=== PATIENT | female | born 1940 | race Asian ===

== ENCOUNTER 2017-03-14 06:32 | Day surgery (SDC) | payer OTHER ==
[~2017-03-14] VITALS: Ht 154.9 cm; Wt 61.2 kg
[~2017-03-14 06:32] MED LIST: AMLODIPINE BESYL5 M1 PO; ASPIR LOW81 MG PO; ATENOLOL25 MG PO; DIOVAN320 MG PO; DORZOLAMIDE HYD10 M2 OU; MACRODANTIN100 MG PO; METFORMIN HCL1000 MG PO; PHOSLO667 MG PO; PLA75; SIMVASTATIN10 M1; TRAVATAN Z5 ML OU
[2017-03-14 07:00] VITALS: BP 145/65
[2017-03-14 10:09] VITALS: BP 118/61
== END 2017-03-14 10:20 | disposition home or self-care (01) ==
LOC: GI 06:32 → OR 08:30 → GI 10:20
PROVIDERS: Internal Medicine
PROC: 0DJD8ZZ Inspection of Lower Intestinal Tract, Via Natural or Artificial Opening Endoscopic (ICD-10-PCS; principal; 2017-03-14 08:30)
DX: Z12.11 Encounter for screening for malignant neoplasm of colon (principal); K64.4 Residual hemorrhoidal skin tags; E11.9 Type 2 diabetes mellitus without complications; E78.5 Hyperlipidemia, unspecified; I10 Essential (primary) hypertension; Z68.26 Body mass index [BMI] 26.0-26.9, adult; Z86.010 Personal history of colon polyps
CPT/HCPCS: 45378; J1200; J1610; J2250; J2310; J3010; J3490

== ENCOUNTER 2017-07-23 00:25 | Inpatient (IN) | payer OTHER ==
[~2017-07-23] VITALS: Ht 157.5 cm; Wt 65.1 kg
[2017-07-23 02:40] LABS: UA SPECIFIC GRAVITY >=1.030 (1.005-1.035); microscopic required? YES; urine erythrocyte TRACE (NEGATIVE)
[2017-07-23 03:09] LABS: BASOPHIL % 1.7 % (0-2); PLATELET COUNT 326 x10^3mcL (130-400); RED CELL DISTRIBUTION WIDTH 12.3 % (11.5-14.5)
[2017-07-23 03:17] LABS: CALCIUM 8.9 mg/dL (8.5-10.1); CARBON DIOXIDE 20.7 mmol/L (21-32); CHLORIDE SERUM 98 mmol/L (98-107); CREATININE SERUM 1.2 mg/dL (0.6-1.0); GLUCOSE SERUM 145 mg/dL (74-106); POTASSIUM SERUM 4.1 mmol/L (3.5-5.1); SODIUM SERUM 132 mmol/L (136-145)
[2017-07-23 03:39] LABS: ALBUMIN 3.5 g/dL (3.4-5.0); ALKALINE PHOSPHATASE 40 U/L (46-116); ALT/SGPT 13 U/L (14-59); AST/SGOT 30 U/L (15-37); BILIRUBIN TOTAL 0.54 mg/dL (0.20-1.00); TOTAL PROTEIN, SERUM 6.6 g/dL (6.4-8.2)
[2017-07-23 05:48] VITALS: BP 116/63
[2017-07-23] MEDS ORDERED: METFORMIN HCL1000 MG PO (06:03)
[2017-07-23] MEDS ORDERED: ASPIR 8181 MG PO (06:03)
[2017-07-23] MEDS ORDERED: AMLODIPINE BESYL5 M2 PO (06:04)
[2017-07-23] MEDS ORDERED: DIOVAN320 MG PO (06:04)
[2017-07-23] MEDS ORDERED: ARICEPT10 MG PO (06:04)
[2017-07-23] MEDS ORDERED: MYRBETRIQ25 MG PO (06:05)
[2017-07-23] MEDS ORDERED: NOR5 PO (06:05)
[2017-07-23] MEDS ORDERED: SIMVASTATIN10 M1 PO (06:05)
[2017-07-23 08:45] LABS: PHOSPHOROUS 3.5 mg/dL (2.5-4.9)
[2017-07-23 08:49] LABS: CHOLESTEROL/HDL RATIO 2.7
[2017-07-23 08:58] VITALS: BP 99/51
[2017-07-23 10:13] LABS: FREE T4 1.34 ng/dL (0.76-1.46); FREE THYROXINE INDEX 3.5 ug/dL (1.4-4.5); T4(THYROXINE) 9.1 ug/dL (4.7-13.3)
[2017-07-23 10:30] VITALS: BP 99/51
[2017-07-23 11:35] LABS: microscopic required? NO
[2017-07-23 11:56] LABS: urine erythrocyte NEGATIVE (NEGATIVE)
[2017-07-23 13:53] LABS: T3 TOTAL 0.89 ng/mL
[2017-07-23 14:30] VITALS: BP 90/49
[2017-07-23 16:00] VITALS: BP 102/58
[2017-07-23 20:00] VITALS: BP 118/64
[2017-07-24] VITALS (7 sets, daily range): BP systolic 93–111; BP diastolic 51–63
[2017-07-24 04:46] LABS: BASOPHIL % 0.7 % (0-2); PLATELET COUNT 268 x10^3mcL (130-400); RED CELL DISTRIBUTION WIDTH 13.4 % (11.5-14.5)
[2017-07-24 04:56] LABS: CALCIUM 7.8 mg/dL (8.5-10.1); CARBON DIOXIDE 25.8 mmol/L (21-32); CHLORIDE SERUM 100 mmol/L (98-107); CREATININE SERUM 0.9 mg/dL (0.6-1.0); GLUCOSE SERUM 142 mg/dL (74-106); MAGNESIUM 1.7 mg/dL (1.8-2.4); PHOSPHOROUS 3.6 mg/dL (2.5-4.9); POTASSIUM SERUM 3.1 mmol/L (3.5-5.1); SODIUM SERUM 136 mmol/L (136-145)
[2017-07-25 03:43] VITALS: BP 92/46
[2017-07-25 05:42] LABS: BASOPHIL % 0.6 % (0-2); PLATELET COUNT 286 x10^3mcL (130-400); RED CELL DISTRIBUTION WIDTH 13.7 % (11.5-14.5)
[2017-07-25 05:54] LABS: CALCIUM 7.9 mg/dL (8.5-10.1); CARBON DIOXIDE 26.8 mmol/L (21-32); CHLORIDE SERUM 99 mmol/L (98-107); GLUCOSE SERUM 148 mg/dL (74-106); PHOSPHOROUS 3.6 mg/dL (2.5-4.9); POTASSIUM SERUM 3.3 mmol/L (3.5-5.1); SODIUM SERUM 134 mmol/L (136-145)
[2017-07-25 06:03] LABS: ALBUMIN 3.2 g/dL (3.4-5.0)
[2017-07-25 08:00] VITALS: BP 97/50
[2017-07-25 12:00] VITALS: BP 106/49
[2017-07-25 16:00] VITALS: BP 88/41
[2017-07-25 19:22] VITALS: BP 109/55
[2017-07-26] VITALS (8 sets, daily range): BP systolic 105–114; BP diastolic 53–62; Ht 157.5 cm; Wt 65.1 kg
[2017-07-26 06:21] LABS: CALCIUM 8.5 mg/dL (8.5-10.1); CARBON DIOXIDE 27.6 mmol/L (21-32); CHLORIDE SERUM 101 mmol/L (98-107); CREATININE SERUM 1.2 mg/dL (0.6-1.0); GLUCOSE SERUM 155 mg/dL (74-106); MAGNESIUM 2.2 mg/dL (1.8-2.4); PHOSPHOROUS 3.9 mg/dL (2.5-4.9); POTASSIUM SERUM 3.9 mmol/L (3.5-5.1); SODIUM SERUM 138 mmol/L (136-145)
[2017-07-26 06:46] LABS: BASOPHIL % 0.4 % (0-2); PLATELET COUNT 298 x10^3mcL (130-400); RED CELL DISTRIBUTION WIDTH 13.6 % (11.5-14.5)
[2017-07-26 15:35] LABS: APPEARANCE FLUID HAZY; COLOR FLUID YELLOW; RBC FLUID 194 /cumm; SOURCE FLUID PLEURAL; WBC FLUID 149 /cumm
[2017-07-26 15:36] LABS: LYMPHOCYTE FLUID 90 %
[2017-07-27] VITALS (10 sets, daily range): BP systolic 101–119; BP diastolic 49–64
[2017-07-27 05:53] LABS: BASOPHIL % 0.5 % (0-2); PLATELET COUNT 313 x10^3mcL (130-400); RED CELL DISTRIBUTION WIDTH 13.2 % (11.5-14.5)
[2017-07-27 06:08] LABS: CARBON DIOXIDE 27.1 mmol/L (21-32); CHLORIDE SERUM 101 mmol/L (98-107); CREATININE SERUM 1.1 mg/dL (0.6-1.0); GLUCOSE SERUM 142 mg/dL (74-106); MAGNESIUM 2.2 mg/dL (1.8-2.4); PHOSPHOROUS 4.5 mg/dL (2.5-4.9); POTASSIUM SERUM 3.7 mmol/L (3.5-5.1); SODIUM SERUM 137 mmol/L (136-145)
[2017-07-28 03:35] VITALS: BP 111/55
[2017-07-28 06:04] LABS: BASOPHIL % 0.5 % (0-2); PLATELET COUNT 317 x10^3mcL (130-400); RED CELL DISTRIBUTION WIDTH 13.1 % (11.5-14.5)
[2017-07-28 06:05] LABS: CARBON DIOXIDE 27.8 mmol/L (21-32); CHLORIDE SERUM 99 mmol/L (98-107); GLUCOSE SERUM 137 mg/dL (74-106); MAGNESIUM 2.2 mg/dL (1.8-2.4); PHOSPHOROUS 4.4 mg/dL (2.5-4.9); POTASSIUM SERUM 3.5 mmol/L (3.5-5.1); SODIUM SERUM 138 mmol/L (136-145)
[2017-07-28 08:02] VITALS: BP 109/54
[2017-07-28 11:42] VITALS: BP 97/60
[2017-07-28 18:12] VITALS: BP 120/64
[2017-07-28 20:17] VITALS: BP 105/50
[2017-07-29 05:07] VITALS: BP 122/56
[2017-07-29 07:10] LABS: BASOPHIL % 0.3 % (0-2); PLATELET COUNT 322 x10^3mcL (130-400); RED CELL DISTRIBUTION WIDTH 12.8 % (11.5-14.5)
[2017-07-29 07:50] LABS: CALCIUM 9.2 mg/dL (8.5-10.1); CARBON DIOXIDE 27.7 mmol/L (21-32); CHLORIDE SERUM 99 mmol/L (98-107); CREATININE SERUM 1.1 mg/dL (0.6-1.0); GLUCOSE SERUM 139 mg/dL (74-106); MAGNESIUM 2.1 mg/dL (1.8-2.4); PHOSPHOROUS 4.2 mg/dL (2.5-4.9); SODIUM SERUM 139 mmol/L (136-145)
[2017-07-29 10:23] VITALS: BP 107/50
[2017-07-29 14:20] VITALS: BP 105/46
[2017-07-29 17:53] VITALS: BP 102/48
[2017-07-29 20:51] VITALS: BP 112/51
[2017-07-30 05:14] VITALS: BP 109/48
[2017-07-30 09:07] VITALS: BP 110/45
[2017-07-30 13:44] VITALS: BP 102/48
[2017-07-30 13:59] VITALS: BP 102/44
[2017-07-30] MEDS ORDERED: DIO80 PO (16:23)
[2017-07-30] MEDS ORDERED: METFORMIN HCL1000 MG PO (16:25)
[2017-07-30] MEDS ORDERED: COR3 PO (16:26)
[2017-07-30] MEDS ORDERED: MECLIZINE HCL12.5 MG PO (16:26)
[2017-07-30] MEDS ORDERED: CLOPIDOGREL75 M1 PO (17:15)
[2017-07-30 17:36] VITALS: BP 116/51
[2017-07-30] MEDS ORDERED: CLINDAMYCIN HC300 MG PO (17:40)
[2017-07-30] MEDS ORDERED: LEVOFLOXACIN500 M1 PO (17:40)
[2017-07-30] MEDS ORDERED: LAC PO (17:44)
[2017-07-30 21:56] VITALS: BP 105/42
[2017-07-31] VITALS (7 sets, daily range): BP systolic 95–119; BP diastolic 43–60
[2017-07-31 10:23] LABS: BASOPHIL % 0.5 % (0-2); CARBON DIOXIDE 26.2 mmol/L (21-32); CHLORIDE SERUM 100 mmol/L (98-107); GLUCOSE SERUM 143 mg/dL (74-106); PLATELET COUNT 289 x10^3mcL (130-400); POTASSIUM SERUM 3.5 mmol/L (3.5-5.1); RED CELL DISTRIBUTION WIDTH 12.9 % (11.5-14.5); SODIUM SERUM 138 mmol/L (136-145)
[2017-08-01 06:02] VITALS: BP 98/56
[2017-08-01 06:34] LABS: BASOPHIL % 0.5 % (0-2); PLATELET COUNT 269 x10^3mcL (130-400); RED CELL DISTRIBUTION WIDTH 13.4 % (11.5-14.5)
[2017-08-01 06:46] LABS: CALCIUM 8.9 mg/dL (8.5-10.1); CARBON DIOXIDE 26.3 mmol/L (21-32); CHLORIDE SERUM 102 mmol/L (98-107); CREATININE SERUM 0.9 mg/dL (0.6-1.0); GLUCOSE SERUM 161 mg/dL (74-106); MAGNESIUM 2.1 mg/dL (1.8-2.4); PHOSPHOROUS 3.6 mg/dL (2.5-4.9); POTASSIUM SERUM 3.7 mmol/L (3.5-5.1); SODIUM SERUM 138 mmol/L (136-145)
[2017-08-01 09:39] VITALS: BP 114/56
[2017-08-01 12:50] VITALS: BP 97/54
[2017-08-01 14:24] VITALS: BP 97/54
== END 2017-08-01 18:55 | DRG 222 ==
LOC: ED 00:25 → IC 04:25 → EDBEDREQ 04:25 → DU 04:25 → EDBEDREQTM 04:30 → IC 08:42 → DU 08:44 → IC 14:56 → DU 07-28 16:05 → IC 07-31 13:49 → DU 07-31 14:37
PROVIDERS: Emergency Medicine; Family Medicine; Internal Medicine Clinical Cardiac Electrophysiology; Internal Medicine Interventional Cardiology; Student in an Organized Health Care Education/Training Program
PROC: 05HM33Z Insertion of Infusion Device into Right Internal Jugular Vein, Percutaneous Approach (ICD-10-PCS; 2017-07-23)
PROC: B2111ZZ Fluoroscopy of Multiple Coronary Arteries using Low Osmolar Contrast (ICD-10-PCS; 2017-07-24)
PROC: B2151ZZ Fluoroscopy of Left Heart using Low Osmolar Contrast (ICD-10-PCS; 2017-07-24)
PROC: 4A023N7 Measurement of Cardiac Sampling and Pressure, Left Heart, Percutaneous Approach (ICD-10-PCS; principal; 2017-07-24 13:30)
PROC: 0W9B3ZZ Drainage of Left Pleural Cavity, Percutaneous Approach (ICD-10-PCS; 2017-07-26)
PROC: 0JH609Z Insertion of Cardiac Resynchronization Defibrillator Pulse Generator into Chest Subcutaneous Tissue and Fascia, Open Approach (ICD-10-PCS; 2017-07-31)
PROC: 02H63KZ Insertion of Defibrillator Lead into Right Atrium, Percutaneous Approach (ICD-10-PCS; 2017-07-31)
PROC: 02HK3KZ Insertion of Defibrillator Lead into Right Ventricle, Percutaneous Approach (ICD-10-PCS; 2017-07-31)
DX: I21.09 ST elevation (STEMI) myocardial infarction involving other coronary artery of anterior wall (principal); J69.0 Pneumonitis due to inhalation of food and vomit; J96.01 Acute respiratory failure with hypoxia; N17.0 Acute kidney failure with tubular necrosis; I50.43 Acute on chronic combined systolic (congestive) and diastolic (congestive) heart failure; E87.1 Hypo-osmolality and hyponatremia; E87.2 Acidosis; I69.354 Hemiplegia and hemiparesis following cerebral infarction affecting left non-dominant side; E44.0 Moderate protein-calorie malnutrition; I82.431 Acute embolism and thrombosis of right popliteal vein; J90 Pleural effusion, not elsewhere classified; I25.5 Ischemic cardiomyopathy; I11.0 Hypertensive heart disease with heart failure; I44.1 Atrioventricular block, second degree; E11.51 Type 2 diabetes mellitus with diabetic peripheral angiopathy without gangrene; D17.71 Benign lipomatous neoplasm of kidney; D63.8 Anemia in other chronic diseases classified elsewhere; R80.9 Proteinuria, unspecified; Z68.27 Body mass index [BMI] 27.0-27.9, adult; Z79.82 Long term (current) use of aspirin; Z79.84 Long term (current) use of oral hypoglycemic drugs
CPT/HCPCS: 33249; 93458; 36558; 32555; C1721; C1895; G0278; CLHCL; 36556; 36600; 83880; 84439; 87804; 97110-GP; 97116-GP; 97164; 97530-GP; A4628; A9500; C1729; C1769; C1894; J0690; J1265; J1642; J1644; J1815; J1940; J1956; J2001; J2060; J2250; J2270; J2405; J2543; J2785; J3010; J3370; J3480; J3490; J7030; J7040; J7050; J7620; J8597; Q0092; Q9967